=== PATIENT | male | born 1985 | race Two or more races ===

== ENCOUNTER 2016-07-22 20:50 | Inpatient (IN) | payer MEDICAID ==
[~2016-07-22] VITALS: Ht 167.6 cm; Wt 66.4 kg
[~2016-07-22 20:50] MED LIST: ASCO500T11 PO; BACL10TA PO; CYCL-181 PO; DIA5T PO; DOCU-94 PO; MULTTAB99 PO; NOR10T PO; Silver Sulfadiazine TOP; ZIN220C PO
[2016-07-22] MEDS ORDERED: HYDROmorphone HCL 2 MG/ML VL IV ONE (22:30)
[2016-07-22] MEDS ORDERED: PROMETHAZINE HCL 25 MG/ML 1ML IV ONE (22:30)
[2016-07-22 22:45] LABS: Urine Bilirubin Negative (Negative); Urine Blood Negative /uL (Negative); Urine Color Yellow (Yellow); Urine Glucose Normal (Normal); Urine Ketone Negative (Negative); Urine Mucus FEW (None Seen); Urine Nitrite Negative (Negative); Urine RBC 3 /hpf (0 - 3)
[2016-07-22 22:57] LABS: DEFINITIVE VIEW TRANSMISSION; Hematocrit 30.7 % (41.0-53.0); Mean Corpuscular Hemoglobin 25.8 pg (28.0-32.0); Mean Corpuscular Hgb Conc. 32.5 g/dL (32.0-36.0); Mean Corpuscular Volume 79.3 fL (80.0-100.0); Mean Platelet Volume 7.7 fL (7.4-10.4); Platelet Count (auto) 366 10^3/uL (140-450); SUSPECT VIEW TRANSMISSION; White Blood Cell 26.8 10^3/uL (4.4-10.8)
[2016-07-22 23:04] LABS: Partial Thromboplastin Time 33.6 sec (22.64-33.71)
[2016-07-22 23:05] LABS: INR 1.31 (0.9-1.15); Metamyelocytes % 0; Myelocytes % 0; Promyelocytes % 0; Prothrombin Time 13.5 sec (9.37-12.3); Reactive Lymphocytes 0
[2016-07-22 23:13] LABS: Albumin 2.7 g/dL (3.4-5.0); BUN/Creatinine Ratio 18.8; Calcium 8.6 mg/dL (8.5-10.1); Potassium 3.8 mmol/L (3.5-5.1)
[2016-07-22 23:16] LABS: Anisocytosis Slight; Bilirubin, Total 0.6 mg/dL (0.2-1.0); Hypochromia Slight; Total Protein 8.4 g/dL (6.4-8.2)
[2016-07-22 23:17] LABS: Ovalocytes FEW
[2016-07-22 23:18] LABS: Platelet Estimate Adequate
[2016-07-22 23:48] LABS: Lactic Acid 2.1 mmol/L (0.4-2.0)
[2016-07-22 23:55] LABS: REFLEX LACTIC ACID YES OR NO YES
[2016-07-23] MEDS ORDERED: PANTOPRAZOLE SODIUM 40 MG/10 ML VIAL IV ONE (01:00)
[2016-07-23] MEDS ORDERED: ONDANSETRON HCL 4 MG/2 ML VIAL IV ONE ×2 (01:00→03:45)
[2016-07-23] MEDS ORDERED: HYDROmorphone HCL 2 MG/ML VL IV ONE ×2 (01:15→03:45)
[2016-07-23] MEDS ORDERED: PIPERACILLIN-TAZOB 3.375GM 100 ML IV ONE (03:30)
[2016-07-23] MEDS ORDERED: SODIUM CHLORIDE 0.9% 1,000 ML IV ONE (03:30)
[2016-07-23] MEDS ORDERED: MORPHINE SULF INJ 2 MG/ML SYRINGE 1ML IV PRN (04:00)
[2016-07-23] MEDS ORDERED: NITROGLYCERIN 0.4 MG SL TAB SL PRN (04:00)
[2016-07-23] MEDS ORDERED: TEMAZEPAM 15 MG CAP PO PRN (04:00)
[2016-07-23 04:20] VITALS: BP 128/59
[2016-07-23 05:10] VITALS: BP 128/59
[2016-07-23] MEDS: SODIUM CHLORIDE 0.9% 1,000 ML IV SCH ×2 (07:55→21:18)
[2016-07-23] MEDS: cefTRIAXone 1GM/50ML D5W 50 ML IV SCH (08:10)
[2016-07-23] MEDS: HYDROmorphone HCL 2 MG/ML VL IV PRN ×4 (08:10→20:11)
[2016-07-23 08:39] VITALS: BP 135/86
[2016-07-23] MEDS ORDERED: GABA-494 PO (15:33)
[2016-07-23] MEDS: GABAPENTIN 300 MG CAP PO SCH ×2 (16:20→21:19)
[2016-07-23] MEDS: BACLOFEN 10 MG TAB PO SCH ×2 (16:20→21:19)
[2016-07-23 16:30] VITALS: BP 116/78
[2016-07-23 22:00] VITALS: BP 101/78
[2016-07-23] MEDS: DIAZEPAM 5 MG TAB PO PRN (22:49)
[2016-07-24] MEDS: HYDROmorphone HCL 2 MG/ML VL IV PRN ×6 (00:10→20:30)
[2016-07-24 05:30] VITALS: BP 133/94
[2016-07-24] MEDS: BACLOFEN 10 MG TAB PO SCH ×3 (05:46→21:39)
[2016-07-24] MEDS: GABAPENTIN 300 MG CAP PO SCH ×3 (05:46→21:37)
[2016-07-24 06:50] LABS: Basophils # (auto) 0 uL; Basophils % (auto) 0.5 % (0.0-2.0); DEFINITIVE VIEW TRANSMISSION; Eosinophils # (auto) 0 uL; Eosinophils % (auto) 0.2 % (0.0-7.0); Hematocrit 27.8 % (41.0-53.0); Hemoglobin 8.9 g/dL (13.5-17.5); Lymphocytes # (auto) 1.7 uL; Mean Corpuscular Hemoglobin 25.7 pg (28.0-32.0); Mean Corpuscular Hgb Conc. 31.9 g/dL (32.0-36.0); Mean Corpuscular Volume 80.6 fL (80.0-100.0); Monocytes # (auto) 0.8 uL; Monocytes % (auto) 7.7 % (0.0-12.0); Neutrophils # (auto) 7.6 uL; Neutrophils % (auto) 74.6 % (37.0-80.0); Platelet Count (auto) 380 10^3/uL (140-450); Red Cell Distribution Width 19.4 % (11.6-16.0); White Blood Cell 10.2 10^3/uL (4.4-10.8)
[2016-07-24 07:05] LABS: Albumin 2.4 g/dL (3.4-5.0); BUN/Creatinine Ratio 26.1; Calcium 8.2 mg/dL (8.5-10.1)
[2016-07-24 07:20] LABS: Bilirubin, Total 0.3 mg/dL (0.2-1.0); Total Protein 7.2 g/dL (6.4-8.2)
[2016-07-24 07:33] LABS: Potassium 2.9 mmol/L (3.5-5.1)
[2016-07-24 09:04] VITALS: BP 130/79
[2016-07-24] MEDS: cefTRIAXone 1GM/50ML D5W 50 ML IV SCH (10:16)
[2016-07-24] MEDS: HYDROcodone-ACET 5/325MG TAB PO PRN (11:13)
[2016-07-24] MEDS: SODIUM CHLORIDE 0.9% 1,000 ML IV SCH (12:53)
[2016-07-24] MEDS: POTASSIUM CHL 20 Meq TABLET PO SCH ×2 (13:20→21:38)
[2016-07-24 13:29] VITALS: BP 151/90
[2016-07-24] MEDS ORDERED: IOHEXOL 350 MG/ML 100ML IJ ONE ×2 (14:00→18:52)
[2016-07-24 16:19] VITALS: BP 136/81
[2016-07-24] MEDS: PRO-STAT 64 30ML PO SCH (17:45)
[2016-07-24] MEDS: BOOST PLUS 8 ounce PO SCH (20:00)
[2016-07-24 22:00] VITALS: BP 137/87
[2016-07-25] MEDS: HYDROmorphone HCL 2 MG/ML VL IV PRN ×6 (00:28→20:22)
[2016-07-25 05:00] VITALS: BP 142/95
[2016-07-25] MEDS: GABAPENTIN 300 MG CAP PO SCH ×3 (05:25→22:31)
[2016-07-25] MEDS: BACLOFEN 10 MG TAB PO SCH ×3 (05:26→22:31)
[2016-07-25] MEDS: SODIUM CHLORIDE 0.9% 1,000 ML IV SCH ×2 (05:46→22:33)
[2016-07-25 06:31] LABS: Basophils # (auto) 0 uL; Basophils % (auto) 0.4 % (0.0-2.0); DEFINITIVE VIEW TRANSMISSION; Eosinophils # (auto) 0 uL; Eosinophils % (auto) 0.2 % (0.0-7.0); Hematocrit 32.2 % (41.0-53.0); Hemoglobin 10.2 g/dL (13.5-17.5); Lymphocytes % (auto) 21.5 % (10.0-50.0); Mean Corpuscular Hemoglobin 25.6 pg (28.0-32.0); Mean Corpuscular Hgb Conc. 31.7 g/dL (32.0-36.0); Mean Corpuscular Volume 80.8 fL (80.0-100.0); Mean Platelet Volume 7.9 fL (7.4-10.4); Monocytes # (auto) 0.5 uL; Monocytes % (auto) 5.6 % (0.0-12.0); Neutrophils # (auto) 6.9 uL; Neutrophils % (auto) 72.3 % (37.0-80.0); Platelet Count (auto) 621 10^3/uL (140-450); Red Cell Distribution Width 19.9 % (11.6-16.0); White Blood Cell 9.5 10^3/uL (4.4-10.8)
[2016-07-25 06:40] LABS: INR 1.15 (0.9-1.15); Prothrombin Time 11.8 sec (9.37-12.3)
[2016-07-25 06:50] LABS: Potassium 4.1 mmol/L (3.5-5.1)
[2016-07-25 07:03] LABS: BUN/Creatinine Ratio 15.4; Magnesium 2.4 mg/dL (1.6-2.6)
[2016-07-25 07:28] LABS: Anisocytosis Slight; Hypochromia Slight; Platelet Estimate Increased
[2016-07-25] MEDS: HYDROcodone-ACET 5/325MG TAB PO PRN (07:53)
[2016-07-25] MEDS: PRO-STAT 64 30ML PO SCH ×2 (07:57→17:33)
[2016-07-25 09:00] VITALS: BP 124/71
[2016-07-25] MEDS: POTASSIUM CHL 20 Meq TABLET PO SCH ×2 (10:33→22:30)
[2016-07-25] MEDS: cefTRIAXone 1GM/50ML D5W 50 ML IV SCH (10:33)
[2016-07-25] MEDS: BOOST PLUS 8 ounce PO SCH ×3 (10:34→22:31)
[2016-07-25 13:00] VITALS: BP 141/92
[2016-07-25] MEDS ORDERED: ZOLPIDEM TARTRATE 5 MG TAB PO PRN (13:45)
[2016-07-25] MEDS: ONDANSETRON HCL 4 MG/2 ML VIAL IV PRN ×2 (13:53→20:22)
[2016-07-25 17:00] VITALS: BP 132/72
[2016-07-25 22:00] VITALS: BP 148/97
[2016-07-25] MEDS: DIAZEPAM 5 MG TAB PO PRN (22:31)
[2016-07-26] MEDS: HYDROmorphone HCL 2 MG/ML VL IV PRN ×6 (00:17→22:07)
[2016-07-26] MEDS: ONDANSETRON HCL 4 MG/2 ML VIAL IV PRN ×7 (00:17→22:17)
[2016-07-26 05:11] VITALS: BP 147/88
[2016-07-26] MEDS: BACLOFEN 10 MG TAB PO SCH ×3 (05:43→22:07)
[2016-07-26] MEDS: GABAPENTIN 300 MG CAP PO SCH ×3 (05:44→22:06)
[2016-07-26 07:12] LABS: Basophils # (auto) 0.1 uL; Basophils % (auto) 0.4 % (0.0-2.0); DEFINITIVE VIEW TRANSMISSION; Eosinophils # (auto) 0 uL; Hemoglobin 10.3 g/dL (13.5-17.5); Lymphocytes # (auto) 1.7 uL; Lymphocytes % (auto) 13.2 % (10.0-50.0); Mean Corpuscular Hemoglobin 25.8 pg (28.0-32.0); Mean Corpuscular Hgb Conc. 32.1 g/dL (32.0-36.0); Mean Corpuscular Volume 80.4 fL (80.0-100.0); Mean Platelet Volume 7.8 fL (7.4-10.4); Monocytes # (auto) 1.2 uL; Monocytes % (auto) 9.3 % (0.0-12.0); Neutrophils # (auto) 9.9 uL; Neutrophils % (auto) 77.1 % (37.0-80.0); White Blood Cell 12.8 10^3/uL (4.4-10.8)
[2016-07-26 07:25] LABS: Prothrombin Time 12.1 sec (9.37-12.3); Red Cell Distribution Width 20.6 % (11.6-16.0)
[2016-07-26 07:26] LABS: Platelet Count (auto) 758 10^3/uL (140-450)
[2016-07-26 07:34] LABS: INR 1.17 (0.9-1.15)
[2016-07-26 07:48] LABS: BUN/Creatinine Ratio 14.5; Magnesium 2.5 mg/dL (1.6-2.6); Potassium 4.2 mmol/L (3.5-5.1)
[2016-07-26] MEDS: PRO-STAT 64 30ML PO SCH ×2 (08:10→16:36)
[2016-07-26 08:13] LABS: Anisocytosis Slight; Hypochromia Slight; Ovalocytes FEW; Platelet Estimate Markedly Increased; Schistocytes FEW
[2016-07-26 09:29] VITALS: BP 132/85
[2016-07-26] MEDS: BOOST PLUS 8 ounce PO SCH ×3 (10:00→20:00)
[2016-07-26] MEDS: POTASSIUM CHL 20 Meq TABLET PO SCH ×2 (11:16→22:05)
[2016-07-26] MEDS: cefTRIAXone 1GM/50ML D5W 50 ML IV SCH (11:16)
[2016-07-26 11:48] VITALS: BP 108/58
[2016-07-26] MEDS ORDERED: VANCOMYCIN PER PHARMACY 0 MG IV SCH (12:30)
[2016-07-26] MEDS: VANCOMYCIN 1GM/250ML D5W 250 ML IV SCH (14:06)
[2016-07-26] MEDS: cefTAZidime 2 GM in D5W 5% 100 ML IV SCH ×2 (15:59→22:05)
[2016-07-26] MEDS: SODIUM CHLORIDE 0.9% 1,000 ML IV SCH (15:59)
[2016-07-26 17:05] VITALS: BP 141/100
[2016-07-26 22:00] VITALS: BP 162/112
[2016-07-27] MEDS: VANCOMYCIN 1GM/250ML D5W 250 ML IV SCH (00:59)
[2016-07-27] MEDS: HYDROmorphone HCL 2 MG/ML VL IV PRN ×2 (02:18→06:30)
[2016-07-27] MEDS: ONDANSETRON HCL 4 MG/2 ML VIAL IV PRN ×2 (02:18→06:29)
[2016-07-27 05:27] VITALS: BP 154/94
[2016-07-27] MEDS: GABAPENTIN 300 MG CAP PO SCH ×3 (06:29→21:22)
[2016-07-27] MEDS: cefTAZidime 2 GM in D5W 5% 100 ML IV SCH ×3 (06:29→21:36)
[2016-07-27] MEDS: BACLOFEN 10 MG TAB PO SCH ×3 (06:29→21:21)
[2016-07-27 06:34] LABS: Basophils # (auto) 0 uL; Basophils % (auto) 0.2 % (0.0-2.0); DEFINITIVE VIEW TRANSMISSION; Eosinophils # (auto) 0 uL; Eosinophils % (auto) 0.3 % (0.0-7.0); Hematocrit 33.7 % (41.0-53.0); Hemoglobin 10.5 g/dL (13.5-17.5); Lymphocytes # (auto) 1.6 uL; Lymphocytes % (auto) 10.9 % (10.0-50.0); Mean Corpuscular Hemoglobin 25.4 pg (28.0-32.0); Mean Corpuscular Hgb Conc. 31.2 g/dL (32.0-36.0); Mean Corpuscular Volume 81.2 fL (80.0-100.0); Mean Platelet Volume 7.7 fL (7.4-10.4); Monocytes # (auto) 1.6 uL; Monocytes % (auto) 10.8 % (0.0-12.0); Neutrophils # (auto) 11.6 uL; Neutrophils % (auto) 77.8 % (37.0-80.0); Red Cell Distribution Width 20.6 % (11.6-16.0); White Blood Cell 14.9 10^3/uL (4.4-10.8)
[2016-07-27 06:46] LABS: INR 1.22 (0.9-1.15); Prothrombin Time 12.6 sec (9.37-12.3)
[2016-07-27 06:59] LABS: BUN/Creatinine Ratio 9.3; Magnesium 2.6 mg/dL (1.6-2.6); Potassium 5.1 mmol/L (3.5-5.1)
[2016-07-27 07:01] LABS: Platelet Count (auto) 800 10^3/uL (140-450)
[2016-07-27] MEDS: SODIUM CHLORIDE 0.9% 1,000 ML IV SCH ×2 (07:40→13:22)
[2016-07-27] MEDS: PRO-STAT 64 30ML PO SCH ×2 (08:00→17:50)
[2016-07-27 09:00] VITALS: BP 144/91
[2016-07-27] MEDS: POTASSIUM CHL 20 Meq TABLET PO SCH (10:00)
[2016-07-27] MEDS: BOOST PLUS 8 ounce PO SCH ×3 (10:00→17:50)
[2016-07-27] MEDS ORDERED: NALOXONE HCL 0.4 MG/ML VIAL ONE (12:29)
[2016-07-27] MEDS ORDERED: NALOXONE HCL 0.4 MG/ML VIAL IV ONE (12:45)
[2016-07-27 13:00] VITALS: BP 140/86
[2016-07-27 14:15] LABS: BUN/Creatinine Ratio 9.5
[2016-07-27 14:26] LABS: Potassium 5.7 mmol/L (3.5-5.1)
[2016-07-27] MEDS ORDERED: ASPirin 81 mg TAB PO ONE (14:30)
[2016-07-27] MEDS ORDERED: InsuLIN REG 1unit/0.01ml Soln (100units/ml) IV ONE (14:45)
[2016-07-27] MEDS ORDERED: DEXTROSE (50%) 50ML SYRG IV ONE (14:45)
[2016-07-27] MEDS ORDERED: CALCIUM GLUC 4.65 MEQ/10ML 4.65 MEQ in SODIUM CHL 0.9% 50 ML IV ONE (14:45)
[2016-07-27 17:00] VITALS: BP 162/98
[2016-07-27] MEDS: LINEZOLID 600MG/300ML 300 ML IV SCH (17:50)
[2016-07-27 20:00] VITALS: BP 140/100
[2016-07-27] MEDS ORDERED: LORazepam 2MG/ML-1ML VIAL IV PRN (20:45)
[2016-07-27] MEDS: ATORVASTATIN 20 MG TAB PO SCH (21:21)
[2016-07-28] VITALS: BP 150/88
[2016-07-28] MEDS: SODIUM CHLORIDE 0.9% 1,000 ML IV SCH (01:52)
[2016-07-28 04:00] VITALS: BP 154/89
[2016-07-28] MEDS: GABAPENTIN 300 MG CAP PO SCH ×3 (05:09→22:00)
[2016-07-28] MEDS: BACLOFEN 10 MG TAB PO SCH ×3 (05:09→22:00)
[2016-07-28] MEDS: cefTAZidime 2 GM in D5W 5% 100 ML IV SCH ×2 (05:14→14:48)
[2016-07-28] MEDS: LINEZOLID 600MG/300ML 300 ML IV SCH ×2 (05:14→18:06)
[2016-07-28 06:49] LABS: Basophils # (auto) 0 uL; DEFINITIVE VIEW TRANSMISSION; Eosinophils # (auto) 0 uL; Hematocrit 34.1 % (41.0-53.0); Hemoglobin 10.4 g/dL (13.5-17.5); Lymphocytes % (auto) 6.7 % (10.0-50.0); Mean Corpuscular Hemoglobin 25.5 pg (28.0-32.0); Mean Corpuscular Hgb Conc. 30.5 g/dL (32.0-36.0); Mean Corpuscular Volume 83.8 fL (80.0-100.0); Mean Platelet Volume 7.5 fL (7.4-10.4); Monocytes # (auto) 1.5 uL; Monocytes % (auto) 9.9 % (0.0-12.0); Neutrophils # (auto) 12.3 uL; Neutrophils % (auto) 83.4 % (37.0-80.0); Platelet Count (auto) 690 10^3/uL (140-450); White Blood Cell 14.8 10^3/uL (4.4-10.8)
[2016-07-28 06:59] LABS: Red Cell Distribution Width 21.7 % (11.6-16.0)
[2016-07-28 07:55] LABS: B-Type Natriuretic Peptide 154.58 pg/mL (0-100); Temperature: 22.5 C (20.0-25.0)
[2016-07-28 08:00] VITALS: BP 151/90
[2016-07-28] MEDS: PRO-STAT 64 30ML PO SCH ×2 (08:00→18:00)
[2016-07-28 08:23] LABS: Platelet Estimate Markedly Increased
[2016-07-28 08:24] LABS: Anisocytosis Slight
[2016-07-28] MEDS: ASPirin 81 mg TAB PO SCH (09:54)
[2016-07-28] MEDS: BOOST PLUS 8 ounce PO SCH ×3 (09:54→20:00)
[2016-07-28 10:02] LABS: BUN/Creatinine Ratio 7.9; Calcium 8.7 mg/dL (8.5-10.1)
[2016-07-28 10:16] LABS: Potassium 5.7 mmol/L (3.5-5.1)
[2016-07-28] MEDS ORDERED: InsuLIN REG 1unit/0.01ml Soln (100units/ml) IV ONE ×3 (10:30→23:00)
[2016-07-28] MEDS ORDERED: CALCIUM GLUC 4.65 MEQ/10ML 4.65 MEQ in SODIUM CHL 0.9% 50 ML IV ONE ×3 (10:30→23:00)
[2016-07-28] MEDS ORDERED: DEXTROSE (50%) 50ML SYRG IV ONE ×3 (10:30→23:00)
[2016-07-28 12:00] VITALS: BP 162/96
[2016-07-28 16:00] VITALS: BP 154/79
[2016-07-28] MEDS: SODIUM BICARBONATE 50ML VIAL 100 ML in D5W 5% 1,000 ML IV SCH (16:52)
[2016-07-28 20:00] VITALS: BP 158/92
[2016-07-28] MEDS: ATORVASTATIN 20 MG TAB PO SCH (22:00)
[2016-07-28] MEDS ORDERED: CALCIUM GLUC 4.65 MEQ/10ML IV ONE (23:29)
[2016-07-28] MEDS ORDERED: ALBUTEROL SULF 2.5 MG/0.5ML(0.5%) NEB SOLN NEB ONE (23:30)
[2016-07-28] MEDS ORDERED: ALBUTEROL SULF 2.5 MG/0.5ML(0.5%) NEB SOLN ONE (23:57)
[2016-07-29] VITALS: BP 157/91
[2016-07-29] MEDS: SODIUM BICARBONATE 50ML VIAL 100 ML in D5W 5% 1,000 ML IV SCH ×3 (03:20→23:06)
[2016-07-29 03:50] LABS: Albumin 2.1 g/dL (3.4-5.0); BUN/Creatinine Ratio 7.2; Calcium 8.4 mg/dL (8.5-10.1)
[2016-07-29 03:53] LABS: Bilirubin, Total 0.3 mg/dL (0.2-1.0); Total Protein 7.1 g/dL (6.4-8.2)
[2016-07-29 04:27] VITALS: BP 140/93
[2016-07-29 04:42] LABS: Basophils # (auto) 0 uL; Basophils % (auto) 0.2 % (0.0-2.0); DEFINITIVE VIEW TRANSMISSION; Eosinophils # (auto) 0 uL; Eosinophils % (auto) 0.2 % (0.0-7.0); Hematocrit 30.2 % (41.0-53.0); Hemoglobin 9.6 g/dL (13.5-17.5); Lymphocytes # (auto) 0.7 uL; Lymphocytes % (auto) 5.4 % (10.0-50.0); Mean Corpuscular Hemoglobin 25.5 pg (28.0-32.0); Mean Corpuscular Hgb Conc. 31.7 g/dL (32.0-36.0); Mean Corpuscular Volume 80.5 fL (80.0-100.0); Mean Platelet Volume 7.7 fL (7.4-10.4); Monocytes # (auto) 1.5 uL; Monocytes % (auto) 12.4 % (0.0-12.0); Neutrophils # (auto) 10.2 uL; Neutrophils % (auto) 81.8 % (37.0-80.0); Platelet Count (auto) 580 10^3/uL (140-450); White Blood Cell 12.5 10^3/uL (4.4-10.8)
[2016-07-29 04:59] LABS: Red Cell Distribution Width 20.7 % (11.6-16.0)
[2016-07-29 05:51] LABS: Anisocytosis Slight; Platelet Estimate Increased
[2016-07-29] MEDS: BACLOFEN 10 MG TAB PO SCH ×3 (06:00→22:00)
[2016-07-29] MEDS: GABAPENTIN 300 MG CAP PO SCH ×3 (06:00→22:00)
[2016-07-29] MEDS: LINEZOLID 600MG/300ML 300 ML IV SCH ×2 (06:49→18:46)
[2016-07-29 07:07] LABS: Thyroid Peroxidase (TPO) Ab 16 IU/mL (0-34)
[2016-07-29 08:00] VITALS: BP 143/80
[2016-07-29] MEDS: PRO-STAT 64 30ML PO SCH ×2 (08:00→18:00)
[2016-07-29 08:06] LABS: Uric Acid 6.9 mg/dL (3.5-7.2)
[2016-07-29 09:34] LABS: Magnesium 2.4 mg/dL (1.6-2.6); Phosphorus 6.3 mg/dL (2.6-4.90)
[2016-07-29] MEDS: BOOST PLUS 8 ounce PO SCH ×3 (09:36→20:00)
[2016-07-29] MEDS: ASPirin 81 mg TAB PO SCH (09:36)
[2016-07-29] MEDS: SODIUM FERR GLUC 62.5MG/5ML 125 MG in SODIUM CHL 0.9% 100 ML IV SCH (10:10)
[2016-07-29 12:00] VITALS: BP 139/89
[2016-07-29] MEDS ORDERED: TPN PER PHARMACY 0 ML IV SCH (14:00)
[2016-07-29] MEDS ORDERED: MORPHINE SULF INJ 2 MG/ML SYRINGE 1ML IV PRN (14:00)
[2016-07-29] MEDS ORDERED: ACETAMINOPHEN 325 MG RECT SUPP PR PRN (14:00)
[2016-07-29] MEDS: cefTAZidime 2 GM in D5W 5% 100 ML IV SCH (14:20)
[2016-07-29] MEDS ORDERED: LIDOCAINE 1% HCL (LOCAL ANESTH.) INJ 20ML MDV ID ONE (15:45)
[2016-07-29 16:00] VITALS: BP 138/80
[2016-07-29 20:00] VITALS: BP 139/80
[2016-07-29] MEDS ORDERED: CLINIMIX PER PHARMACY IV NR ×4 (20:00)
[2016-07-29] MEDS: ATORVASTATIN 20 MG TAB PO SCH (22:00)
[2016-07-29] MEDS: SODIUM CHLOR 0.9% PF (SALINE LOCK) 10ML VIAL IV SCH (22:24)
[2016-07-30 00:57] VITALS: BP 149/84
[2016-07-30 04:05] VITALS: BP 155/80
[2016-07-30] MEDS: LINEZOLID 600MG/300ML 300 ML IV SCH ×2 (05:27→18:17)
[2016-07-30] MEDS: BACLOFEN 10 MG TAB PO SCH ×3 (05:27→22:00)
[2016-07-30] MEDS: GABAPENTIN 300 MG CAP PO SCH ×3 (05:28→22:00)
[2016-07-30 06:47] LABS: Basophils # (auto) 0 uL; Basophils % (auto) 0.3 % (0.0-2.0); DEFINITIVE VIEW TRANSMISSION; Eosinophils # (auto) 0.1 uL; Eosinophils % (auto) 1.1 % (0.0-7.0); Hematocrit 24.9 % (41.0-53.0); Hemoglobin 8.1 g/dL (13.5-17.5); Lymphocytes % (auto) 9.2 % (10.0-50.0); Mean Corpuscular Hemoglobin 25.7 pg (28.0-32.0); Mean Corpuscular Hgb Conc. 32.3 g/dL (32.0-36.0); Mean Corpuscular Volume 79.3 fL (80.0-100.0); Mean Platelet Volume 7.4 fL (7.4-10.4); Monocytes # (auto) 1.4 uL; Monocytes % (auto) 12.7 % (0.0-12.0); Neutrophils # (auto) 8.4 uL; Neutrophils % (auto) 76.7 % (37.0-80.0); Platelet Count (auto) 519 10^3/uL (140-450); Red Cell Distribution Width 19.8 % (11.6-16.0)
[2016-07-30] MEDS: SODIUM BICARBONATE 50ML VIAL 100 ML in D5W 5% 1,000 ML IV SCH ×2 (07:04→17:20)
[2016-07-30 07:08] LABS: Albumin 1.8 g/dL (3.4-5.0); Calcium 7.6 mg/dL (8.5-10.1); Magnesium 2.4 mg/dL (1.6-2.6); Potassium 4.2 mmol/L (3.5-5.1)
[2016-07-30 07:13] LABS: Bilirubin, Total 0.2 mg/dL (0.2-1.0); Total Protein 6.2 g/dL (6.4-8.2)
[2016-07-30 07:25] LABS: Phosphorus 6.2 mg/dL (2.6-4.90)
[2016-07-30 08:00] VITALS: BP 145/94
[2016-07-30] MEDS ORDERED: DEXTROSE (50%) 50ML SYRG IV SCH (08:45)
[2016-07-30] MEDS: PRO-STAT 64 30ML PO SCH ×2 (08:47→18:00)
[2016-07-30] MEDS: ASPirin 81 mg TAB PO SCH (08:48)
[2016-07-30] MEDS: BOOST PLUS 8 ounce PO SCH ×3 (08:48→20:00)
[2016-07-30] MEDS: SODIUM CHLOR 0.9% PF (SALINE LOCK) 10ML VIAL IV SCH ×2 (09:49→22:53)
[2016-07-30] MEDS: SODIUM FERR GLUC 62.5MG/5ML 125 MG in SODIUM CHL 0.9% 100 ML IV SCH (10:30)
[2016-07-30 11:41] LABS: Temperature: 22.3 C (20.0-25.0)
[2016-07-30] MEDS: InsuLIN REG 1unit/0.01ml Soln (100units/ml) SC SCH ×2 (11:44→18:00)
[2016-07-30] MEDS: ACCU-CHEK COMFORT CURVE STRIP VI SCH ×2 (11:44→18:19)
[2016-07-30 12:00] VITALS: BP 139/84
[2016-07-30] MEDS: cefTAZidime 2 GM in D5W 5% 100 ML IV SCH (14:30)
[2016-07-30 16:00] VITALS: BP 125/88
[2016-07-30] MEDS ORDERED: FLEET MINERAL OIL ENEMA 133 ML PR ONE (16:30)
[2016-07-30] MEDS: MORPHINE SULF INJ 2 MG/ML SYRINGE 1ML IV PRN (19:42)
[2016-07-30] MEDS ORDERED: CLINIMIX PER PHARMACY IV NR ×7 (20:00)
[2016-07-30 20:08] VITALS: BP 126/78
[2016-07-30] MEDS: ATORVASTATIN 20 MG TAB PO SCH (22:00)
[2016-07-31 00:23] VITALS: BP 134/62
[2016-07-31] MEDS: ACCU-CHEK COMFORT CURVE STRIP VI SCH ×4 (00:27→18:21)
[2016-07-31] MEDS: SODIUM BICARBONATE 50ML VIAL 100 ML in D5W 5% 1,000 ML IV SCH ×4 (00:29→19:35)
[2016-07-31] MEDS: MORPHINE SULF INJ 2 MG/ML SYRINGE 1ML IV PRN ×3 (01:39→20:08)
[2016-07-31 04:19] VITALS: BP 144/70
[2016-07-31 05:44] LABS: Basophils # (auto) 0 uL; Basophils % (auto) 0.2 % (0.0-2.0); DEFINITIVE VIEW TRANSMISSION; Eosinophils # (auto) 0.2 uL; Eosinophils % (auto) 1.4 % (0.0-7.0); Hematocrit 25.1 % (41.0-53.0); Hemoglobin 7.9 g/dL (13.5-17.5); Lymphocytes # (auto) 1.3 uL; Lymphocytes % (auto) 10.5 % (10.0-50.0); Mean Corpuscular Hemoglobin 25.3 pg (28.0-32.0); Mean Corpuscular Hgb Conc. 31.5 g/dL (32.0-36.0); Mean Corpuscular Volume 80.4 fL (80.0-100.0); Mean Platelet Volume 7.9 fL (7.4-10.4); Monocytes # (auto) 1.3 uL; Monocytes % (auto) 10.8 % (0.0-12.0); Neutrophils # (auto) 9.7 uL; Neutrophils % (auto) 77.1 % (37.0-80.0); Platelet Count (auto) 489 10^3/uL (140-450); Red Cell Distribution Width 19.5 % (11.6-16.0); SUSPECT VIEW TRANSMISSION; White Blood Cell 12.5 10^3/uL (4.4-10.8)
[2016-07-31 05:53] LABS: Albumin 1.9 g/dL (3.4-5.0); Bilirubin, Total 0.2 mg/dL (0.2-1.0); Calcium 8.1 mg/dL (8.5-10.1); Phosphorus 2.4 mg/dL (2.6-4.90); Total Protein 6.6 g/dL (6.4-8.2)
[2016-07-31] MEDS: BACLOFEN 10 MG TAB PO SCH ×3 (06:00→22:07)
[2016-07-31] MEDS: InsuLIN REG 1unit/0.01ml Soln (100units/ml) SC SCH ×4 (06:00→18:00)
[2016-07-31] MEDS: GABAPENTIN 300 MG CAP PO SCH ×3 (06:00→22:06)
[2016-07-31] MEDS: LINEZOLID 600MG/300ML 300 ML IV SCH ×2 (06:05→18:21)
[2016-07-31 06:24] LABS: Potassium 2.9 mmol/L (3.5-5.1)
[2016-07-31 08:00] VITALS: BP 121/72
[2016-07-31] MEDS: PRO-STAT 64 30ML PO SCH ×2 (08:00→18:00)
[2016-07-31] MEDS ORDERED: POTASSIUM CHL 20MEQ/100ML 100 ML IV ONE (08:30)
[2016-07-31] MEDS ORDERED: POTASSIUM PHOSP 22MEQ(15MMOLE) in NS 100 ML IV ONE (08:30)
[2016-07-31] MEDS: ASPirin 81 mg TAB PO SCH (09:32)
[2016-07-31] MEDS: BOOST PLUS 8 ounce PO SCH ×3 (09:32→23:03)
[2016-07-31] MEDS: SODIUM CHLOR 0.9% PF (SALINE LOCK) 10ML VIAL IV SCH ×2 (09:32→22:07)
[2016-07-31] MEDS: SODIUM FERR GLUC 62.5MG/5ML 125 MG in SODIUM CHL 0.9% 100 ML IV SCH (10:00)
[2016-07-31 11:06] LABS: Anti-intermyofibrillar Ab Negative (Neg:<1:20); Anti-sarcolemma Antibody Negative (Neg:<1:20); Haptoglobin 512 mg/dL (34-200)
[2016-07-31 12:00] VITALS: BP 121/72
[2016-07-31] MEDS: cefTAZidime 2 GM in D5W 5% 100 ML IV SCH (14:00)
[2016-07-31 16:00] VITALS: BP 117/50
[2016-07-31 20:00] VITALS: BP 129/76
[2016-07-31] MEDS ORDERED: TPN PER PHARMACY IV NR ×11 (20:00)
[2016-07-31] MEDS: ATORVASTATIN 20 MG TAB PO SCH (22:06)
[2016-07-31 22:56] LABS: Urine Bilirubin Negative (Negative); Urine Blood TRACE /uL (Negative); Urine Color Yellow (Yellow); Urine Glucose Normal (Normal); Urine Ketone Negative (Negative); Urine Mucus FEW (None Seen); Urine Nitrite Negative (Negative); Urine RBC 239 /hpf (0 - 3); Urine Urobilinogen Normal (Negative); Urine pH 8.5 (5.0-8.0)
[2016-08-01] VITALS: BP 129/74
[2016-08-01] MEDS: MORPHINE SULF INJ 2 MG/ML SYRINGE 1ML IV PRN ×6 (00:11→21:27)
[2016-08-01] MEDS: ACCU-CHEK COMFORT CURVE STRIP VI SCH ×4 (00:55→18:24)
[2016-08-01] MEDS: SODIUM BICARBONATE 50ML VIAL 100 ML in D5W 5% 1,000 ML IV SCH ×2 (02:10→10:15)
[2016-08-01 04:00] VITALS: BP 133/72
[2016-08-01] MEDS: BACLOFEN 10 MG TAB PO SCH ×3 (05:04→21:25)
[2016-08-01] MEDS: GABAPENTIN 300 MG CAP PO SCH ×3 (05:04→21:25)
[2016-08-01] MEDS: LINEZOLID 600MG/300ML 300 ML IV SCH ×2 (05:09→20:32)
[2016-08-01] MEDS: InsuLIN REG 1unit/0.01ml Soln (100units/ml) SC SCH ×4 (06:00→18:00)
[2016-08-01 06:14] LABS: Albumin 1.8 g/dL (3.4-5.0); BUN/Creatinine Ratio 15.9; Bilirubin, Total 0.2 mg/dL (0.2-1.0); Calcium 7.9 mg/dL (8.5-10.1); Magnesium 1.7 mg/dL (1.6-2.6); Phosphorus 2.9 mg/dL (2.6-4.90); Total Protein 6.3 g/dL (6.4-8.2)
[2016-08-01 06:26] LABS: Basophils # (auto) 0 uL; Basophils % (auto) 0.3 % (0.0-2.0); DEFINITIVE VIEW TRANSMISSION; Eosinophils # (auto) 0.3 uL; Eosinophils % (auto) 2.8 % (0.0-7.0); Hematocrit 24.2 % (41.0-53.0); Hemoglobin 7.7 g/dL (13.5-17.5); Lymphocytes # (auto) 1.6 uL; Lymphocytes % (auto) 16.2 % (10.0-50.0); Mean Corpuscular Hemoglobin 25.5 pg (28.0-32.0); Mean Corpuscular Hgb Conc. 31.9 g/dL (32.0-36.0); Mean Corpuscular Volume 80.1 fL (80.0-100.0); Mean Platelet Volume 7.7 fL (7.4-10.4); Monocytes # (auto) 1.3 uL; Monocytes % (auto) 12.9 % (0.0-12.0); Neutrophils # (auto) 6.7 uL; Neutrophils % (auto) 67.8 % (37.0-80.0); Platelet Count (auto) 435 10^3/uL (140-450); Red Cell Distribution Width 19.7 % (11.6-16.0); White Blood Cell 9.8 10^3/uL (4.4-10.8)
[2016-08-01 07:53] VITALS: BP 134/79
[2016-08-01] MEDS ORDERED: cefTAZidime 2 GM in D5W 5% 100 ML IV SCH (08:00)
[2016-08-01] MEDS: PRO-STAT 64 30ML PO SCH ×2 (08:00→18:00)
[2016-08-01] MEDS ORDERED: POTASSIUM CHL 20MEQ/100ML 100 ML IV ONE ×3 (08:30)
[2016-08-01] MEDS: cefTAZidime 2 GM in D5W 5% 100 ML IV SCH ×3 (08:38→23:47)
[2016-08-01 09:08] LABS: Erythropoietin 7.4 mIU/mL (2.6-18.5)
[2016-08-01] MEDS: SODIUM FERR GLUC 62.5MG/5ML 125 MG in SODIUM CHL 0.9% 100 ML IV SCH (09:15)
[2016-08-01] MEDS: ASPirin 81 mg TAB PO SCH (09:15)
[2016-08-01] MEDS: SODIUM CHLOR 0.9% PF (SALINE LOCK) 10ML VIAL IV SCH ×2 (09:15→21:26)
[2016-08-01] MEDS: POTASSIUM CHL 20MEQ/100ML 100 ML IV SCH ×3 (09:15→14:47)
[2016-08-01] MEDS: BOOST PLUS 8 ounce PO SCH ×3 (09:54→21:26)
[2016-08-01 12:00] VITALS: BP 111/74
[2016-08-01] MEDS ORDERED: MAGNESIUM SULFATE 1GM/100ML 100 ML IV ONE (14:15)
[2016-08-01] MEDS: SODIUM CHLORIDE 0.9% 1,000 ML IV SCH (15:45)
[2016-08-01 15:54] VITALS: BP 99/68
[2016-08-01 16:08] LABS: Sjogren's Anti-SS-A Antibody 0.4 AI (0.0-0.9)
[2016-08-01] MEDS ORDERED: DEXTROSE (50%) 50ML SYRG IV PRN (17:45)
[2016-08-01] MEDS ORDERED: TPN PER PHARMACY IV NR ×11 (20:00)
[2016-08-01] MEDS: ATORVASTATIN 20 MG TAB PO SCH (21:26)
[2016-08-01 22:08] VITALS: BP 134/80
[2016-08-02] MEDS: MORPHINE SULF INJ 2 MG/ML SYRINGE 1ML IV PRN ×6 (01:33→22:05)
[2016-08-02] MEDS: SODIUM CHLORIDE 0.9% 1,000 ML IV SCH ×2 (03:35→17:27)
[2016-08-02 05:04] LABS: Basophils # (auto) 0 uL; Basophils % (auto) 0.2 % (0.0-2.0); DEFINITIVE VIEW TRANSMISSION; Eosinophils # (auto) 0.2 uL; Eosinophils % (auto) 1.6 % (0.0-7.0); Hematocrit 24.7 % (41.0-53.0); Hemoglobin 7.8 g/dL (13.5-17.5); Lymphocytes # (auto) 2.3 uL; Lymphocytes % (auto) 20.9 % (10.0-50.0); Mean Corpuscular Hemoglobin 25.3 pg (28.0-32.0); Mean Corpuscular Hgb Conc. 31.5 g/dL (32.0-36.0); Mean Corpuscular Volume 80.3 fL (80.0-100.0); Mean Platelet Volume 7.5 fL (7.4-10.4); Monocytes # (auto) 1.1 uL; Monocytes % (auto) 9.9 % (0.0-12.0); Neutrophils # (auto) 7.6 uL; Neutrophils % (auto) 67.4 % (37.0-80.0); Platelet Count (auto) 477 10^3/uL (140-450); Red Cell Distribution Width 19.8 % (11.6-16.0); White Blood Cell 11.2 10^3/uL (4.4-10.8)
[2016-08-02] MEDS: GABAPENTIN 300 MG CAP PO SCH ×3 (05:28→21:42)
[2016-08-02] MEDS: LINEZOLID 600MG/300ML 300 ML IV SCH ×2 (05:28→17:27)
[2016-08-02] MEDS: BACLOFEN 10 MG TAB PO SCH ×3 (05:28→21:41)
[2016-08-02 05:32] LABS: Albumin 2.1 g/dL (3.4-5.0); Bilirubin, Total 0.2 mg/dL (0.2-1.0); Calcium 8.4 mg/dL (8.5-10.1); Magnesium 1.9 mg/dL (1.6-2.6); Phosphorus 1.7 mg/dL (2.6-4.90); Potassium 3.7 mmol/L (3.5-5.1); Total Protein 6.9 g/dL (6.4-8.2)
[2016-08-02 05:40] VITALS: BP 140/89
[2016-08-02] MEDS: InsuLIN REG 1unit/0.01ml Soln (100units/ml) SC SCH ×2 (06:00)
[2016-08-02] MEDS: ACCU-CHEK COMFORT CURVE STRIP VI SCH ×3 (06:13→11:36)
[2016-08-02] MEDS: PRO-STAT 64 30ML PO SCH ×2 (08:00→17:27)
[2016-08-02] MEDS: cefTAZidime 2 GM in D5W 5% 100 ML IV SCH ×2 (08:43→17:27)
[2016-08-02 09:00] VITALS: BP 140/84
[2016-08-02] MEDS: ASPirin 81 mg TAB PO SCH (09:54)
[2016-08-02] MEDS: SODIUM FERR GLUC 62.5MG/5ML 125 MG in SODIUM CHL 0.9% 100 ML IV SCH (10:05)
[2016-08-02] MEDS: BOOST PLUS 8 ounce PO SCH ×2 (10:05→14:33)
[2016-08-02] MEDS: SODIUM CHLOR 0.9% PF (SALINE LOCK) 10ML VIAL IV SCH (10:06)
[2016-08-02 13:00] VITALS: BP 137/96
[2016-08-02 16:47] VITALS: BP 131/88
[2016-08-02] MEDS: ATORVASTATIN 20 MG TAB PO SCH (21:41)
[2016-08-02 21:58] VITALS: BP 132/80
[2016-08-03] MEDS: cefTAZidime 2 GM in D5W 5% 100 ML IV SCH ×3 (00:49→15:49)
[2016-08-03] MEDS: BOOST PLUS 8 ounce PO SCH ×4 (01:04→20:21)
[2016-08-03] MEDS: SODIUM CHLOR 0.9% PF (SALINE LOCK) 10ML VIAL IV SCH ×3 (01:05→21:50)
[2016-08-03] MEDS: MORPHINE SULF INJ 2 MG/ML SYRINGE 1ML IV PRN ×4 (04:42→20:12)
[2016-08-03 05:14] VITALS: BP 140/89
[2016-08-03] MEDS: LINEZOLID 600MG/300ML 300 ML IV SCH ×2 (05:22→17:28)
[2016-08-03] MEDS: BACLOFEN 10 MG TAB PO SCH ×3 (05:22→21:50)
[2016-08-03] MEDS: GABAPENTIN 300 MG CAP PO SCH ×3 (05:22→21:51)
[2016-08-03] MEDS: SODIUM CHLORIDE 0.9% 1,000 ML IV SCH ×2 (06:15→15:14)
[2016-08-03 07:42] LABS: Albumin 2.1 g/dL (3.4-5.0); Alkaline Phosphatase 106 U/L (45-117); Aspartate Aminotransferase 68 U/L (15-37); Bilirubin, Direct < 0.1 mg/dL (0-0.2); Bilirubin, Total 0.3 mg/dL (0.2-1.0)
[2016-08-03] MEDS: PRO-STAT 64 30ML PO SCH ×2 (08:32→17:28)
[2016-08-03] MEDS: ASPirin 81 mg TAB PO SCH (09:39)
[2016-08-03] MEDS: SODIUM FERR GLUC 62.5MG/5ML 125 MG in SODIUM CHL 0.9% 100 ML IV SCH (09:39)
[2016-08-03 13:18] VITALS: BP 132/79
[2016-08-03] MEDS ORDERED: MAGNESIUM SULFATE 1GM/100ML 100 ML IV ONE (15:00)
[2016-08-03 17:00] VITALS: BP 136/94
[2016-08-03] MEDS: ATORVASTATIN 20 MG TAB PO SCH (21:50)
[2016-08-03 22:11] VITALS: BP 148/95
[2016-08-04] MEDS: MORPHINE SULF INJ 2 MG/ML SYRINGE 1ML IV PRN ×6 (00:24→20:31)
[2016-08-04] MEDS: cefTAZidime 2 GM in D5W 5% 100 ML IV SCH ×3 (00:29→15:36)
[2016-08-04 05:00] VITALS: BP 141/88
[2016-08-04] MEDS: BACLOFEN 10 MG TAB PO SCH ×3 (05:42→21:31)
[2016-08-04] MEDS: GABAPENTIN 300 MG CAP PO SCH ×3 (05:43→21:31)
[2016-08-04] MEDS: LINEZOLID 600MG/300ML 300 ML IV SCH ×2 (05:43→17:34)
[2016-08-04 08:33] LABS: Basophils # (auto) 0.1 uL; Basophils % (auto) 0.5 % (0.0-2.0); DEFINITIVE VIEW TRANSMISSION; Eosinophils # (auto) 0.2 uL; Eosinophils % (auto) 2.1 % (0.0-7.0); Hematocrit 27.8 % (41.0-53.0); Hemoglobin 8.8 g/dL (13.5-17.5); Lymphocytes # (auto) 2.4 uL; Lymphocytes % (auto) 21.2 % (10.0-50.0); Mean Corpuscular Hemoglobin 25.7 pg (28.0-32.0); Mean Corpuscular Hgb Conc. 31.5 g/dL (32.0-36.0); Mean Corpuscular Volume 81.4 fL (80.0-100.0); Mean Platelet Volume 8.2 fL (7.4-10.4); Monocytes % (auto) 8.7 % (0.0-12.0); Neutrophils # (auto) 7.7 uL; Neutrophils % (auto) 67.5 % (37.0-80.0); Platelet Count (auto) 419 10^3/uL (140-450); White Blood Cell 11.5 10^3/uL (4.4-10.8)
[2016-08-04] MEDS: PRO-STAT 64 30ML PO SCH ×2 (08:41→17:34)
[2016-08-04] MEDS: BOOST PLUS 8 ounce PO SCH ×3 (08:42→21:31)
[2016-08-04] MEDS: ASPirin 81 mg TAB PO SCH (08:42)
[2016-08-04] MEDS: SODIUM CHLOR 0.9% PF (SALINE LOCK) 10ML VIAL IV SCH ×2 (08:42→21:33)
[2016-08-04 09:00] VITALS: BP 127/78
[2016-08-04 09:01] LABS: Red Cell Distribution Width 20.5 % (11.6-16.0)
[2016-08-04 10:05] LABS: Anisocytosis Slight; Hypochromia Slight; Large Platelets FEW; Ovalocytes FEW; Platelet Estimate Adequate
[2016-08-04] MEDS: SODIUM FERR GLUC 62.5MG/5ML 125 MG in SODIUM CHL 0.9% 100 ML IV SCH (10:21)
[2016-08-04 13:00] VITALS: BP 127/87
[2016-08-04] MEDS ORDERED: FLUCONAZOLE 100 MG TAB PO ONE (15:45)
[2016-08-04 17:00] VITALS: BP 115/76
[2016-08-04] MEDS: ATORVASTATIN 20 MG TAB PO SCH (21:30)
[2016-08-04 21:54] VITALS: BP 131/83
[2016-08-05] MEDS: cefTAZidime 2 GM in D5W 5% 100 ML IV SCH ×3 (00:37→16:25)
[2016-08-05] MEDS: MORPHINE SULF INJ 2 MG/ML SYRINGE 1ML IV PRN ×6 (00:39→20:36)
[2016-08-05] MEDS: SODIUM CHLORIDE 0.9% 1,000 ML IV SCH ×2 (00:40→16:46)
[2016-08-05 05:10] VITALS: BP 132/87
[2016-08-05] MEDS: LINEZOLID 600MG/300ML 300 ML IV SCH ×2 (05:54→17:48)
[2016-08-05] MEDS: BACLOFEN 10 MG TAB PO SCH ×3 (05:55→21:55)
[2016-08-05] MEDS: GABAPENTIN 300 MG CAP PO SCH ×3 (05:55→21:55)
[2016-08-05 06:21] LABS: Basophils # (auto) 0 uL; Basophils % (auto) 0.3 % (0.0-2.0); DEFINITIVE VIEW TRANSMISSION; Eosinophils # (auto) 0.1 uL; Eosinophils % (auto) 0.8 % (0.0-7.0); Hemoglobin 9.1 g/dL (13.5-17.5); Lymphocytes # (auto) 2.3 uL; Lymphocytes % (auto) 17.3 % (10.0-50.0); Mean Corpuscular Hemoglobin 25.5 pg (28.0-32.0); Mean Corpuscular Hgb Conc. 31.5 g/dL (32.0-36.0); Mean Corpuscular Volume 80.9 fL (80.0-100.0); Mean Platelet Volume 7.7 fL (7.4-10.4); Monocytes % (auto) 7.9 % (0.0-12.0); Neutrophils # (auto) 9.6 uL; Neutrophils % (auto) 73.7 % (37.0-80.0); Platelet Count (auto) 435 10^3/uL (140-450)
[2016-08-05 06:23] LABS: Red Cell Distribution Width 20.6 % (11.6-16.0)
[2016-08-05 06:33] LABS: BUN/Creatinine Ratio 10.7; Calcium 8.4 mg/dL (8.5-10.1); Potassium 4.2 mmol/L (3.5-5.1)
[2016-08-05] MEDS: PRO-STAT 64 30ML PO SCH ×2 (08:30→17:27)
[2016-08-05 09:24] LABS: Anisocytosis Slight; Large Platelets FEW; Ovalocytes FEW; Platelet Estimate Adequate
[2016-08-05 09:25] LABS: Hypochromia Slight
[2016-08-05] MEDS: ASPirin 81 mg TAB PO SCH (10:19)
[2016-08-05] MEDS: FLUCONAZOLE 100 MG TAB PO SCH (10:19)
[2016-08-05] MEDS: SODIUM FERR GLUC 62.5MG/5ML 125 MG in SODIUM CHL 0.9% 100 ML IV SCH (10:20)
[2016-08-05] MEDS: SODIUM CHLOR 0.9% PF (SALINE LOCK) 10ML VIAL IV SCH ×2 (10:20→21:54)
[2016-08-05] MEDS: BOOST PLUS 8 ounce PO SCH ×3 (10:20→20:31)
[2016-08-05 13:00] VITALS: BP 116/76
[2016-08-05 17:00] VITALS: BP 136/93
[2016-08-05] MEDS: ATORVASTATIN 20 MG TAB PO SCH (21:55)
[2016-08-05 22:13] VITALS: BP 127/76
[2016-08-06] MEDS: cefTAZidime 2 GM in D5W 5% 100 ML IV SCH ×3 (00:25→16:00)
[2016-08-06] MEDS: MORPHINE SULF INJ 2 MG/ML SYRINGE 1ML IV PRN ×6 (00:47→20:56)
[2016-08-06 05:12] VITALS: BP 122/86
[2016-08-06] MEDS: LINEZOLID 600MG/300ML 300 ML IV SCH ×2 (05:36→20:39)
[2016-08-06] MEDS: BACLOFEN 10 MG TAB PO SCH ×3 (05:37→20:55)
[2016-08-06] MEDS: GABAPENTIN 300 MG CAP PO SCH ×3 (05:37→20:54)
[2016-08-06 05:46] LABS: Basophils # (auto) 0.1 uL; Basophils % (auto) 0.6 % (0.0-2.0); DEFINITIVE VIEW TRANSMISSION; Eosinophils # (auto) 0.4 uL; Eosinophils % (auto) 2.7 % (0.0-7.0); Hematocrit 31.2 % (41.0-53.0); Hemoglobin 9.8 g/dL (13.5-17.5); Lymphocytes % (auto) 22.1 % (10.0-50.0); Mean Corpuscular Hemoglobin 25.5 pg (28.0-32.0); Mean Corpuscular Hgb Conc. 31.4 g/dL (32.0-36.0); Mean Corpuscular Volume 81.3 fL (80.0-100.0); Mean Platelet Volume 7.7 fL (7.4-10.4); Monocytes # (auto) 1.2 uL; Monocytes % (auto) 8.5 % (0.0-12.0); Neutrophils # (auto) 8.9 uL; Neutrophils % (auto) 66.1 % (37.0-80.0); Platelet Count (auto) 423 10^3/uL (140-450); White Blood Cell 13.5 10^3/uL (4.4-10.8)
[2016-08-06 05:57] LABS: BUN/Creatinine Ratio 17.6; Calcium 7.9 mg/dL (8.5-10.1); Potassium 4.2 mmol/L (3.5-5.1)
[2016-08-06 05:59] LABS: Red Cell Distribution Width 21.6 % (11.6-16.0)
[2016-08-06 06:50] LABS: Hypersegmented Neutrophils Present; Platelet Estimate Adequate
[2016-08-06 06:51] LABS: Anisocytosis Slight; Hypochromia Slight; Ovalocytes FEW
[2016-08-06] MEDS: PRO-STAT 64 30ML PO SCH ×2 (08:00→20:39)
[2016-08-06 08:32] VITALS: BP 129/81
[2016-08-06] MEDS: BOOST PLUS 8 ounce PO SCH ×3 (09:06→20:38)
[2016-08-06] MEDS: SODIUM CHLORIDE 0.9% 1,000 ML IV SCH ×2 (09:06→13:59)
[2016-08-06] MEDS: SODIUM CHLOR 0.9% PF (SALINE LOCK) 10ML VIAL IV SCH ×2 (09:06→20:39)
[2016-08-06] MEDS: ASPirin 81 mg TAB PO SCH (10:41)
[2016-08-06] MEDS: FLUCONAZOLE 100 MG TAB PO SCH (10:41)
[2016-08-06] MEDS ORDERED: ONDANSETRON HCL 4 MG/2 ML VIAL IV PRN (13:00)
[2016-08-06] MEDS ORDERED: LORazepam 2MG/ML-1ML VIAL IV PRN (13:00)
[2016-08-06 14:05] VITALS: BP 133/85
[2016-08-06] MEDS ORDERED: FLUC100T34 PO (16:18)
[2016-08-06] MEDS ORDERED: DOXY-216 PO (16:18)
[2016-08-06] MEDS ORDERED: CIPR-217 PO (16:18)
[2016-08-06] MEDS ORDERED: SACC250C PO (16:18)
[2016-08-06 17:00] VITALS: BP 130/86
[2016-08-06] MEDS: ATORVASTATIN 20 MG TAB PO SCH (20:55)
[2016-08-06 22:00] VITALS: BP 114/72
[2016-08-07] MEDS: cefTAZidime 2 GM in D5W 5% 100 ML IV SCH ×2 (00:43→08:32)
[2016-08-07] MEDS: MORPHINE SULF INJ 2 MG/ML SYRINGE 1ML IV PRN ×4 (01:13→13:19)
[2016-08-07 05:30] VITALS: BP 121/77
[2016-08-07] MEDS: LINEZOLID 600MG/300ML 300 ML IV SCH (05:36)
[2016-08-07] MEDS: BACLOFEN 10 MG TAB PO SCH ×2 (05:37→13:19)
[2016-08-07] MEDS: GABAPENTIN 300 MG CAP PO SCH ×2 (05:37→13:19)
[2016-08-07 07:46] LABS: Basophils # (auto) 0.1 uL; Basophils % (auto) 0.6 % (0.0-2.0); DEFINITIVE VIEW TRANSMISSION; Eosinophils # (auto) 0.4 uL; Eosinophils % (auto) 4.1 % (0.0-7.0); Hematocrit 28.4 % (41.0-53.0); Lymphocytes # (auto) 2.7 uL; Lymphocytes % (auto) 28.3 % (10.0-50.0); Mean Corpuscular Hemoglobin 25.9 pg (28.0-32.0); Mean Corpuscular Hgb Conc. 31.7 g/dL (32.0-36.0); Mean Corpuscular Volume 81.7 fL (80.0-100.0); Mean Platelet Volume 7.1 fL (7.4-10.4); Monocytes # (auto) 0.9 uL; Monocytes % (auto) 8.9 % (0.0-12.0); Neutrophils # (auto) 5.6 uL; Neutrophils % (auto) 58.1 % (37.0-80.0); Platelet Count (auto) 392 10^3/uL (140-450); White Blood Cell 9.6 10^3/uL (4.4-10.8)
[2016-08-07] MEDS: PRO-STAT 64 30ML PO SCH (08:00)
[2016-08-07 08:08] LABS: Red Cell Distribution Width 21.9 % (11.6-16.0)
[2016-08-07 08:30] VITALS: BP 119/75
[2016-08-07] MEDS: BOOST PLUS 8 ounce PO SCH (08:42)
[2016-08-07] MEDS ORDERED: VANCOMYCIN PER PHARMACY 0 MG IV SCH (09:15)
[2016-08-07 09:16] LABS: Anisocytosis Slight; Hypochromia Slight; Platelet Estimate Adequate
[2016-08-07] MEDS: SODIUM CHLOR 0.9% PF (SALINE LOCK) 10ML VIAL IV SCH (10:00)
[2016-08-07] MEDS: ASPirin 81 mg TAB PO SCH (10:31)
[2016-08-07] MEDS: FLUCONAZOLE 100 MG TAB PO SCH (10:31)
[2016-08-07] MEDS: SODIUM CHLORIDE 0.9% 1,000 ML IV SCH (11:34)
[2016-08-07] MEDS ORDERED: VANCOMYCIN 1GM/250ML D5W 250 ML IV SCH (12:00)
[2016-08-07 13:00] VITALS: BP 124/86
[2016-08-07 14:36] VITALS: BP 119/75
[2016-08-07 16:52] VITALS: BP 120/86
== END 2016-08-07 17:30 | disposition home health service (06) | DRG 720 ==
LOC: ER 20:55 → TELE 20:56 → TELE-WESTW 07-23 04:39 → WEST WING 07-25 00:55 → TELE-WESTW 07-25 01:48 → DOU IN ICU 07-27 18:45 → ICU CENTRL 07-27 18:45 → TELE-WESTW 08-01 18:32
PROVIDERS: ADMIT Surgery; ATTEND Internal Medicine
PROC: 02HV33Z Insertion of Infusion Device into Superior Vena Cava, Percutaneous Approach (ICD-10-PCS; principal; 2016-07-29)
DX: A41.9 Sepsis, unspecified organism (principal); I21.4 Non-ST elevation (NSTEMI) myocardial infarction; N17.0 Acute kidney failure with tubular necrosis; E43 Unspecified severe protein-calorie malnutrition; G93.41 Metabolic encephalopathy; D68.9 Coagulation defect, unspecified; L89.154 Pressure ulcer of sacral region, stage 4; I11.0 Hypertensive heart disease with heart failure; L89.323 Pressure ulcer of left buttock, stage 3; I50.30 Unspecified diastolic (congestive) heart failure; G82.20 Paraplegia, unspecified; D47.3 Essential (hemorrhagic) thrombocythemia; D64.9 Anemia, unspecified; E61.1 Iron deficiency; E87.5 Hyperkalemia; B96.4 Proteus (mirabilis) (morganii) as the cause of diseases classified elsewhere; F12.90 Cannabis use, unspecified, uncomplicated; B95.2 Enterococcus as the cause of diseases classified elsewhere; G62.9 Polyneuropathy, unspecified; N31.9 Neuromuscular dysfunction of bladder, unspecified; B95.62 Methicillin resistant Staphylococcus aureus infection as the cause of diseases classified elsewhere; B96.89 Other specified bacterial agents as the cause of diseases classified elsewhere; G89.29 Other chronic pain; Z16.24 Resistance to multiple antibiotics; B37.49 Other urogenital candidiasis; Z82.49 Family history of ischemic heart disease and other diseases of the circulatory system; Z83.3 Family history of diabetes mellitus; Z93.3 Colostomy status; Z79.899 Other long term (current) drug therapy; Z80.9 Family history of malignant neoplasm, unspecified; Z98.890 Other specified postprocedural states; Z68.23 Body mass index [BMI] 23.0-23.9, adult
CPT/HCPCS: 36415; 36600; 70450; 71010; 71275; 74176; 80048; 80053; 80076; 81001; 82040; 82105; 82150; 82550; 82607; 82668; 82728; 82746; 82805; 82962; 83010; 83540; 83550; 83605; 83615; 83690; 83735; 83880; 84100; 84132; 84425; 84439; 84443; 84478; 84484; 84550; 85007; 85025; 85027; 85045; 85610; 85652; 85730; 86141; 86225; 86235; 86803; 87040; 87077; 87081; 87086; 87186; 87205; 87340; 92610; 93005; 93306; 93970; 94640; 95819; 96374; 96375; 96376; C9113; J0696; J1815; J2405; J2543; J3480; J7060; J7131

== ENCOUNTER 2016-09-24 11:51 | Emergency (ER) | payer MEDICAID ==
[~2016-09-24] VITALS: Ht 167.6 cm; Wt 56.7 kg
[~2016-09-24 11:51] MED LIST changes: +CIPR-217 PO; +DOXY-216 PO; +FLUC100T34 PO; +GABA-494 PO; +SACC250C PO
[2016-09-24] MEDS ORDERED: ONDANSETRON HCL 4 MG/2 ML VIAL IV ONE (13:15)
[2016-09-24] MEDS ORDERED: MORPHINE SULFATE 10 MG/ML INJ 1ML SDV IV ONE (13:15)
[2016-09-24] MEDS ORDERED: HYDROmorphone HCL 2 MG/ML VL IV ONE (13:30)
[2016-09-24] MEDS ORDERED: SODIUM CHLORIDE 0.9% 1,000 ML IV ONE (13:52)
[2016-09-24 15:00] VITALS: BP 136/62
[2016-09-24] MEDS ORDERED: MORPHINE SULFATE 4 MG/ML SYRG ONE (16:51)
[2016-09-24] MEDS ORDERED: MORPHINE SULFATE 4 MG/ML SYRG IV ONE (17:15)
== END 2016-09-24 17:19 | disposition home or self-care (01) ==
LOC: EDUNIT# 11:51 → ER 11:59
DX: G89.29 Other chronic pain (principal); M79.662 Pain in left lower leg; M79.661 Pain in right lower leg; I10 Essential (primary) hypertension; G82.20 Paraplegia, unspecified; Z79.899 Other long term (current) drug therapy
CPT/HCPCS: 96361; 96374; 96375; 96376; 99284; J1170; J2270; J2405; J7030

== ENCOUNTER 2016-10-28 16:08 | Emergency (ER) | payer MEDICAID ==
[~2016-10-28] VITALS: Ht 157.5 cm; Wt 49.9 kg
[2016-10-28 16:55] LABS: Basophils # (auto) 0 uL; DEFINITIVE VIEW TRANSMISSION; Eosinophils # (auto) 0 uL; Hematocrit 41.5 % (41.0-53.0); Hemoglobin 13.7 g/dL (13.5-17.5); Lymphocytes # (auto) 0.7 uL; Lymphocytes % (auto) 5.3 % (10.0-50.0); Mean Corpuscular Hemoglobin 27.5 pg (28.0-32.0); Mean Corpuscular Volume 83.2 fL (80.0-100.0); Mean Platelet Volume 7.1 fL (7.4-10.4); Monocytes # (auto) 0.2 uL; Monocytes % (auto) 1.6 % (0.0-12.0); Neutrophils # (auto) 12.3 uL; Neutrophils % (auto) 93.1 % (37.0-80.0); Platelet Count (auto) 486 10^3/uL (140-450); White Blood Cell 13.3 10^3/uL (4.4-10.8)
[2016-10-28 17:04] LABS: Red Cell Distribution Width 24.8 % (11.6-16.0)
[2016-10-28 17:11] LABS: BUN/Creatinine Ratio 18.3
[2016-10-28 17:14] LABS: Bilirubin, Total 0.1 mg/dL (0.2-1.0); Total Protein 8.1 g/dL (6.4-8.2)
[2016-10-28 17:43] LABS: Hypochromia Slight; Platelet Clumps FEW; Platelet Estimate Increased
[2016-10-28 17:44] LABS: Anisocytosis Moderate; Stomatocytes Few
[2016-10-28] MEDS ORDERED: ONDANSETRON HCL 4 MG/2 ML VIAL IV ONE (23:00)
[2016-10-28] MEDS ORDERED: MORPHINE SULFATE 4 MG/ML SYRG IV ONE (23:00)
[2016-10-28] MEDS ORDERED: cefTRIAXone 1GM/50ML D5W 50 ML IV ONE (23:45)
[2016-10-28] MEDS ORDERED: metroNIDAZOLE 500MG/100ML 100 ML IV ONE (23:45)
[2016-10-28 23:49] LABS: Basophils # (auto) 0.1 uL; Basophils % (auto) 0.5 % (0.0-2.0); DEFINITIVE VIEW TRANSMISSION; Eosinophils # (auto) 0 uL; Eosinophils % (auto) 0.1 % (0.0-7.0); Hemoglobin 13.5 g/dL (13.5-17.5); Lymphocytes # (auto) 3.5 uL; Lymphocytes % (auto) 21.7 % (10.0-50.0); Mean Corpuscular Hgb Conc. 32.1 g/dL (32.0-36.0); Mean Corpuscular Volume 84.3 fL (80.0-100.0); Mean Platelet Volume 7.4 fL (7.4-10.4); Monocytes # (auto) 1.5 uL; Monocytes % (auto) 9.3 % (0.0-12.0); Neutrophils % (auto) 68.4 % (37.0-80.0); Platelet Count (auto) 535 10^3/uL (140-450)
[2016-10-28 23:51] LABS: Albumin 3.1 g/dL (3.4-5.0); Bilirubin, Total 0.3 mg/dL (0.2-1.0); Calcium 9.3 mg/dL (8.5-10.1); Total Protein 8.7 g/dL (6.4-8.2)
[2016-10-29 00:09] LABS: Red Cell Distribution Width 24.4 % (11.6-16.0)
[2016-10-29 00:10] LABS: Anisocytosis Slight; Platelet Estimate Increased
[2016-10-29] MEDS ORDERED: HYDROmorphone HCL 2 MG/ML VL IV ONE (01:15)
[2016-10-29 01:38] LABS: Urine Bilirubin Negative (Negative); Urine Blood Negative /uL (Negative); Urine Color Yellow (Yellow); Urine Glucose Normal (Normal); Urine Ketone TRACE (Negative); Urine Mucus FEW (None Seen); Urine Nitrite Negative (Negative); Urine RBC 2 /hpf (0 - 3); Urine Urobilinogen Normal (Negative); Urine pH 6.5 (5.0-8.0)
[2016-10-29 01:39] VITALS: BP 118/76
== END 2016-10-29 02:10 | disposition home or self-care (01) ==
LOC: ER 16:10
DX: K52.89 Other specified noninfective gastroenteritis and colitis (principal); I10 Essential (primary) hypertension; F17.210 Nicotine dependence, cigarettes, uncomplicated; F12.10 Cannabis abuse, uncomplicated; Z98.890 Other specified postprocedural states
CPT/HCPCS: 36415; 74176; 80053; 81001; 82150; 83690; 85025; 96365; 96368; 96375; 99285; J0696; J1170; J2270; J2405; J3490; J7030